=== PATIENT | male | born 2000 | race Caucasian/White ===

== ENCOUNTER 2025-04-07 07:31 | Emergency (ER) | payer SELFPAY ==
[2025-04-07 07:35] VITALS: BP 117/65; PULSE 71; TEMP 36.9; O2SAT 99; BMI 24.4
[2025-04-07] MEDS: DOXYCYCLINE MONOHYDRATE 100 MG CAPSULE PO (08:16)
[2025-04-07] MEDS: PREDNISONE 20 MG TABLET 40 MG PO (08:16)
--- NOTE | 2025-04-07 09:31 | ED.GENADUL1 ---
HPI HPI - General Adult General Chief complaint: Skin/Abscess/Foreign Body Stated complaint: LOWER EXTREMITY RASH Time Seen by Provider: 04/07/25 08:04 Source: patient Mode of arrival: walk-in Limitations: no limitations History of Present Illness HPI narrative: The patient is coming to the ER after he noticed pimple to his right leg that showed up over the last 2 days, patient noted that today it was more red and he noticed some white spots in the middle of it and he came here for evaluation The patient denies any fever but he mentioned that it all started with itching and he thought it was an IV No other complaint Related Data Previous Rx's ?Medication ?Instructions ?Recorded doxycycline hyclate 100 mg tablet 100 mg PO BID 10 days #20 tabs 04/07/25 prednisone 20 mg tablet 40 mg (2 x 20 mg) PO DAILY 3 days 04/07/25 #6 tabs Allergies Allergy/AdvReac Type Severity Reaction Status Date / Time No Known Drug Allergies Allergy Verified 04/07/25 07:35 Opioid HPI Opioid Management Most Recent Opioid Data: Last Pain Scale 7 Today, 07:40 Review of Systems ROS Status of ROS 10 or more systems reviewed and unremarkable except as noted in history and below PFSH PFSH Social History Little interest or pleasure in doing things: not at all Feeling down, depressed, or hopeless: not at all Exam Narrative Exam Narrative: Nurses notes and vital signs reviewed and patient is not hypoxic. General: Well-appearing and in no apparent distress. Right lower extremity: No vascular injury detected and the patient have an area of redness on the lateral aspect of the proximal leg just distal to the knee The patient have an area of almost 5 cm circular of redness with no induration at the middle of it there is a area of almost 1.5 cm in diameter with a 1 spot that looks like possible pus almost 1 mm After cleaning it was thoroughly with alcohol this 1 mm pus drained and there is no further drainage with pressure and no fluctuation Constitutional Vital Signs, click to edit/add: Last Vital Signs Temp 98.4 F 04/07/25 07:35 Pulse 71 04/07/25 07:35 Resp 18 04/07/25 07:35 BP 117/65 04/07/25 07:35 Pulse Ox 99 04/07/25 07:35 O2 Del Method Room Air 04/07/25 07:35 Course Vital Signs Vital signs: Vital Signs Temperature 98.4 F 04/07/25 07:35 Pulse Rate 71 04/07/25 07:35 Respiratory Rate 18 04/07/25 07:35 Blood Pressure 117/65 04/07/25 07:35 Pulse Oximetry 99 04/07/25 07:35 Oxygen Delivery Method Room Air 04/07/25 07:35 Temperature 98.4 F 04/07/25 07:35 Pulse Rate 71 04/07/25 07:35 Respiratory Rate 18 04/07/25 07:35 Blood Pressure 117/65 04/07/25 07:35 Pulse Oximetry 99 04/07/25 07:35 Oxygen Delivery Method Room Air 04/07/25 07:35 Medical Decision Making MDM Narrative Medical decision making narrative: The patient presenting mostly with a infected insect bite although he was not sure if he had a tick bite or not The patient was instructed about the importance of monitoring the symptoms including the redness and possible fever and increasing the swelling The redness was marked and the patient was started with cellulitis treatment with doxycycline in addition to prednisone to help with the possible allergic reaction as well The patient is to follow up with primary care physician in next 2-3 days or to return to the emergency department should any of the signs or symptoms worsen or new symptoms develop. The patient agrees with the following Diagnosis and Treatment plan and the patient will be discharged home. Discharge Plan Discharge Chief Complaint: Skin/Abscess/Foreign Body Clinical Impression: Cellulitis, Abscess of skin or subcutaneous tissue Patient Disposition: Home, Self-Care Time of Disposition Decision: 08:05 Condition: Good Mode of Transportation: Private Vehicle Prescriptions / Home Meds: New prednisone 20 mg tablet 40 mg PO DAILY 3 Days Qty: 6 0RF doxycycline hyclate 100 mg tablet 100 mg PO BID 10 Days Qty: 20 0RF Print Language: Jordanian Instructions: Cellulitis (ED), Abscess (ED) Referrals: Physician,Non-Staff, MD [Primary Care Provider] - 1 week Discharge Date/Time: 04/07/25 08:21
== END 2025-04-07 08:21 | disposition home or self-care (01) ==
PROVIDERS: Emergency Provider Emergency Medicine
DX: L03.115 Cellulitis of right lower limb (principal); L02.415 Cutaneous abscess of right lower limb
CPT/HCPCS: 99283; J7512